=== PATIENT | female | born 1970 | race Caucasian/White ===

== ENCOUNTER 2018-01-28 17:24 | Emergency (ER) | payer OTHER ==
--- NOTE | 2018-01-28 17:50 | ERPHSYRPT ---
- History of Present Illness Time Seen by Provider: 01/28/18 17:45 Source: patient Exam Limitations: no limitations Patient Subjective Stated Complaint: pt here for laceration to right ring finger while cutting up cucumbers Triage Nursing Assessment: pt has alvusion to tip of finger and mising a section of fnger nail . scant amount of bleeding at present time, pressure applied Physician History: The patient is a 47-year-old right-handed female with her complaining that she accidentally sliced the skin off the tip of her right ring finger while in the kitchen. It was bleeding and she couldn't get it stopped. It has now stopped bleeding. She denies numbness or tingling. Her last tetanus vaccination is unknown. Her past medical history is significant for high cholesterol and hypothyroidism. Timing/Duration: today Quality: other (laceration) Severity: mild Location: hands (right) Possible Causes: other (mandoline blade) Associated Symptoms: denies symptoms Allergies/Adverse Reactions: No Known Drug Allergies Allergy (Unverified 01/28/18 17:42) Home Medications: Unobtainable 01/28/18 [History] Hx Tetanus, Diphtheria Vaccination/Date Given: No Hx Influenza Vaccination/Date Given: Yes Hx Pneumococcal Vaccination/Date Given: No Immunizations Up to Date: Yes - Review of Systems Constitutional: No Fever, No Chills Eyes: No Symptoms Ears, Nose, & Throat: No Symptoms Respiratory: No Cough, No Dyspnea Cardiac: No Chest Pain, No Edema, No Syncope Abdominal/Gastrointestinal: No Abdominal Pain, No Nausea, No Vomiting, No Diarrhea Genitourinary Symptoms: No Dysuria Musculoskeletal: No Back Pain, No Neck Pain Skin: Other (avulsion) Neurological: No Dizziness, No Focal Weakness, No Sensory Changes Psychological: No Symptoms Endocrine: No Symptoms Hematologic/Lymphatic: No Symptoms Immunological/Allergic: No Symptoms All Other Systems: Reviewed and Negative - Past Medical History Pertinent Past Medical History: Yes Cardiac History: High Cholesterol Other Medical History: graves diasease - Past Surgical History Past Surgical History: Yes Gastrointestinal: Cholecystectomy Female Surgical History: Tubal Ligation - Social History Smoking Status: Current every day smoker Exposure to second hand smoke: Yes Drug Use: none Patient Lives Alone: No - Female History Hx Last Menstrual Period: 3 weeks ago Hx Now: No - Nursing Vital Signs Nursing Vital Signs: Pain Scale Pain Intensity 2 - Physical Exam General Appearance: no apparent distress, alert Eye Exam: PERRL/EOMI, eyes nml inspection Ears, Nose, Throat Exam: normal ENT inspection, pharynx normal, moist mucous membranes Neck Exam: normal inspection, non-tender, supple, full range of motion Respiratory Exam: normal breath sounds, lungs clear, No respiratory distress Cardiovascular Exam: regular rate/rhythm, normal heart sounds Gastrointestinal/Abdomen Exam: soft, mass, No tenderness Pelvic Exam: not done Rectal Exam: not done Back Exam: normal inspection, normal range of motion, No CVA tenderness, No vertebral tenderness Extremity Exam: normal inspection, normal range of motion Neurologic Exam: alert, oriented x 3, cooperative, normal mood/affect, sensation nml, No motor deficits Skin Exam: laceration (skin avulsion to distal right 4th digit.) SpO2 Interpretation: normal Oxygen Delivery: Room Air - Departure Time of Disposition: 17:51 Departure Disposition: Home Clinical Impression: Avulsion of skin of finger without complication Condition: Stable Critical Care Time: No Referrals: JUAN JONES [Primary Care Provider] - Additional Instructions: You have an avulsion laceration to the tip of your right index finger. You were given a tetanus vaccination in the ER. Keep the area clean. Apply a waterproof Band-Aid over the tip and change daily until healed.
[2018-01-28] MEDS ORDERED: Adacel Vial IM ONE (17:59)
[2018-01-28] MEDS: Adacel Vial IM ONE (18:05)
== END 2018-01-28 18:11 | disposition home or self-care (01) ==
LOC: ED 17:24
DX: S61.312A Laceration without foreign body of right middle finger with damage to nail, initial encounter (principal); W45.8XXA Other foreign body or object entering through skin, initial encounter; Y92.000 Kitchen of unspecified non-institutional (private) residence as the place of occurrence of the external cause; E78.00 Pure hypercholesterolemia, unspecified; E05.00 Thyrotoxicosis with diffuse goiter without thyrotoxic crisis or storm; E03.9 Hypothyroidism, unspecified; Z72.0 Tobacco use
CPT/HCPCS: 90471; 90715; 96372; 99283